=== PATIENT | male | born 1995 | race Caucasian/White ===

== ENCOUNTER 2016-09-29 21:41 | Emergency (ER) | payer MEDICAID ==
[2016-09-29 21:48] VITALS: BP 147/82; PULSE 100; RESP 16; TEMP 97.7; O2SAT 97
--- NOTE | 2016-09-29 21:54 | EDPHY ---
H & P Stated Complaint: Multiple complaints /back pain, burn on finger, abd pain HPI/ROS: HPI CHIEF COMPLAINT: Chronic back pain, I need a work and school note. HISTORY OF PRESENT ILLNESS: This patient very pleasant 20-year-old male, he states he has had has suffered from scoliosis for a long time, he presents emergency room with chronic back pain stating that he needs a work excuse to return back to work as well as a school excuse tell the next few days off due to ongoing back pain. He denies trauma. Denies fever, denies leg weakness, denies numbness or tingling, denies pain going down either leg. Tells me his pain is chronic no new injury. He states on Wednesday he vomited 1 time at work and was told in order for him to come back to work he needs a work note. Past Medical History: Scoliosis Past Surgical History: Denies significant surgical history Social History: Daily tobacco use, denies drugs, alcohol, works at [employer], is [employer] student Family History: Noncontributory ROS REVIEW OF SYSTEMS: A comprehensive 10 point review of systems is otherwise negative aside from elements mentioned in the history of present illness. Exam Constitutional triage nursing summary reviewed, vital signs reviewed, awake/ alert. Eyes normal conjunctivae and sclera, EOMI, PERRLA. HENT normal inspection, atraumatic, moist mucus membranes, no epistaxis, neck supple/ no meningismus, no raccoon eyes. Respiratory clear to auscultation bilaterally, normal breath sounds, no respiratory distress, no wheezing. Cardiovascular rate normal, regular rhythm, no murmur, no edema, distal pulses normal. Gastrointestinal soft, non-tender, no rebound, no guarding, normal bowel sounds, no distension, no pulsatile mass. Genitourinary no CVA tenderness. Musculoskeletal Back Exam: Nontender to palpation, no midline tenderness, no leg weakness, no signs of trauma back, no CVA tenderness, no midline vertebral tenderness, full range of motion, no calf swelling, no tenderness of extremities , no meningismus, good pulses, neurovascularly intact. Skin pink, warm, & dry, no rash, skin atraumatic. Neurologic awake, alert and oriented x 3, AAOx3, moves all 4 extremities equally, motor intact, sensory intact, CN II-XII intact, normal cerebellar, normal vision, normal speech. Psychiatric normal mood/affect. Heme/Lymph/Immune no lymphadenopathy. Differential Diagnosis: includes but is not limited to in a particular order, scoliosis, chronic back pain, need for work note, need for school note. Medical Decision Making: Patient here in the emergency room with no focal new complaint. Requesting work and school note which I will provide for him. Also for his chronic back pain he agreed for a trial of Ultram and Flexeril. Re-evaluation: 2203: This time this patient appears well nontoxic no acute distress, agrees for discharge agrees for work note and school note. Source: Patient - Personal History Current Tetanus/Diphtheria Vaccine: Yes Current Tetanus Diphtheria and Acellular Pertussis (TDAP): Yes - Medical/Surgical History Hx Asthma: Yes Hx Chronic Respiratory Disease: No Hx Diabetes: No Hx Cardiac Disease: No Hx Renal Disease: No Hx Cirrhosis: No Hx Alcoholism: No Hx HIV/AIDS: No Hx Splenectomy or Spleen Trauma: No Other PMH: anxiety, BACK PAIN CHRONIC - Social History Smoking Status: Heavy smoker Constitutional: Initial Vital Signs Temperature (C) 36.5 C 09/29/16 21:46 Heart Rate 100 09/29/16 21:46 Respiratory Rate 16 09/29/16 21:46 Blood Pressure 147/82 H 09/29/16 21:46 O2 Sat (%) 97 09/29/16 21:46 O2 Delivery Mode Room Air Allergies/Adverse Reactions: No Known Allergies Allergy (Verified 09/29/16 21:45) Home Medications: Medication Instructions Recorded Ibuprofen [Motrin (*)] 800 mg PO Q6-8PRN #30 tab 02/27/16 Cyclobenzaprine [Flexeril 10 MG 10 mg PO TID PRN #10 tab 09/29/16 (*)] traMADol [Ultram 50 mg (*)] 50 mg PO Q4 #10 tab 09/29/16 Departure - Departure Disposition: Home, Routine, Self-Care Clinical Impression: Chronic back pain Qualifiers: Back pain location: low back pain Back pain laterality: midline Sciatica presence: without sciatica Qualified Code(s): M54.5 - Low back pain; G89.29 - Other chronic pain Condition: Good Instructions: Arthralgia (ED), Chronic Back Pain (ED), Back Pain (ED) Additional Instructions: 1. Stay well-hydrated 2. Take Flexeril as prescribed as a muscle relaxant can make you sleepy. 3. Take Ultram this is a pain medicine. Take this with food. Referrals: NONE *PRIMARY CARE P,. [Primary Care Provider] - As per Instructions Prescriptions: Cyclobenzaprine [Flexeril 10 MG (*)] 10 mg PO TID PRN #10 tab PRN Reason: Spasms traMADol [Ultram 50 mg (*)] 50 mg PO Q4 #10 tab
== END 2016-09-29 22:16 | disposition home or self-care (01) ==
DX: M54.5 Low back pain (principal); G89.29 Other chronic pain; J45.909 Unspecified asthma, uncomplicated; F17.200 Nicotine dependence, unspecified, uncomplicated